=== PATIENT | male | born 2005 | race Caucasian/White ===

== ENCOUNTER 2024-01-31 06:28 | Outpatient (REF) | payer BC, SELFPAY ==
--- NOTE | ~2024-01-31 | US_ITS ---
EXAMINATION: US THYROID CLINICAL INFORMATION: Swelling/lump along the left jugular line. COMPARISON: None available. TECHNIQUE: Linear transducer borja-scale and color Doppler examination with attention to the region of the left jaw line, submandibular, and parotid glands. FINDINGS: Focused ultrasound of the area of palpable concern along the left jawline demonstrates 2 small morphologically normal lymph nodes with retained fatty hilum measuring 2.2 x 0.6 x 0.8 cm and 1.6 x 0.7 x 0.7 cm. No abnormal lymph nodes. The left parotid and submandibular glands are normal in appearance. No stones visualized. US/US soft tiss head and/or neck IMPRESSION: 1. Two small morphologically normal lymph nodes along the left jawline. No abnormal lymph nodes. 2. Normal appearance of the left parotid and submandibular glands. Electronically signed by: Jenelle Mcbride MD 02/01/2024 08:16 AM [facility]
== END 2024-01-31 06:29 | disposition home or self-care (01) ==
LOC: HO.UMASIMG 06:28
PROVIDERS: Visit Provider Internal Medicine
DX: R22.0 Localized swelling, mass and lump, head (principal)
CPT/HCPCS: 76536